=== PATIENT | female | born 1935 | race Caucasian/White ===

== ENCOUNTER 2017-02-27 08:34 | Day surgery (SDC) | payer OTHER ==
[2017-02-24 14:18] VITALS: BMI 41.3
[2017-02-27] MEDS ORDERED: PROPOFOL 20 ML ONE (09:07)
[2017-02-27 10:15] VITALS: TEMP 97.8
[2017-02-27 10:54] VITALS: BP 133/74; PULSE 66
--- NOTE | 2017-03-05 11:19 | PATH ---
Surgical Pathology Report Patient Name: CHRISTI WHITAKER [facility]. Rec. #: [id number] /Age/Gender: 1935 (Age: 81) / F Account: [id number] Location: [facility] Taken: 02/27/2017 Received: 02/27/2017 Reported: 02/28/2017 Physicians: Pedro Robins M.D. Specimen(s) Received POLYP PROXIMAL RIGHT COLON Clinical History History of polyps Polyp proximal right colon Final Diagnosis COLON, PROXIMAL RIGHT, POLYP, POLYPECTOMY: TUBULAR ADENOMA. Electronically Signed Shankar Gross M.D. Gross Description Received in formalin, labeled "proximal right colon" is a watts, irregular portion of soft tissue measuring 0.3 cm in greatest dimension. The specimen is submitted in toto in one cassette. /02/27/201702/27/2017
== END 2017-02-27 10:59 | disposition home or self-care (01) ==
LOC: FASU-ENDO 08:34
PROVIDERS: ATTEND Internal Medicine Gastroenterology
PROC: 0DBK8ZX Excision of Ascending Colon, Via Natural or Artificial Opening Endoscopic, Diagnostic (ICD-10-PCS; principal; 2017-02-27 09:38)
DX: Z86.010 Personal history of colon polyps (principal); D12.2 Benign neoplasm of ascending colon
CPT/HCPCS: 88305-TC